=== PATIENT | female | born 2000 | race Two or more races ===

== ENCOUNTER 2024-03-29 14:27 | Emergency (ER) | payer MEDICAID, OTHER ==
[~2024-03-29] VITALS: Ht 162.6 cm; Wt 44.2 kg
[2024-03-29] MEDS ORDERED: CEPH500C PO (16:29)
[2024-03-29 17:08] VITALS: BP 120/65; PULSE 92; RESP 16; TEMP 98.3; O2SAT 100
== END 2024-03-29 17:10 | disposition home or self-care (01) ==
LOC: ER 14:27
DX: H66.91 Otitis media, unspecified, right ear (principal)